=== PATIENT | male | born 1980 | race Hispanic/Latino ===

== ENCOUNTER 2019-07-11 08:34 | Day surgery (SDC) | payer BC ==
[2019-07-11 09:06] LABS: Absolute Lymphocytes (CBC) 2.6 K/uL (0.7-4.9); Basophils % 1.3 % (0-1.3); Hematocrit 42.4 % (39.6-49.0); Lymphocytes % 28.1 % (15.3-44.8); MPV 6.9 fL (7.6-11.3); RBC Red Blood Cell Count 4.78 M/uL (4.33-5.43)
[2019-07-11 09:23] LABS: Albumin 4.1 g/dL (3.4-5.0); Bilirubin Direct 0.1 mg/dL (0-0.2); Bilirubin Total 0.4 mg/dL (0.2-1.0); Potassium 3.4 mmol/L (3.5-5.1); Protein, Total 7.5 g/dL (6.4-8.2)
[2019-07-11] MEDS ORDERED: KETOROLAC 30 MG/ML INJ ONE (09:26)
[2019-07-11] MEDS ORDERED: NA CHLORIDE 0.9% 1,000 ML ONE (09:26)
--- NOTE | 2019-07-11 10:02 | RAD REPORT ---
EXAM DESCRIPTION: CT - Stone Protocol - 07/11/2019 9:39 am CLINICAL HISTORY: Flank pain. left flank pain COMPARISON: No comparisons TECHNIQUE: Axial images were obtained without oral or IV contrast. Lack of contrast limits solid org an and vascular assessment. The [id number] spans the entirety of the system partially obscuring uppermost abdomen and lung bases. Coronal reformatted images were obtained and reviewed. All CT scans are performed using dose optimization technique as appropriate and may include automated exposure control or mA/KV adjustment according to patient size. FINDINGS: The lower lung park are clear. Imaged portions of the liver and spleen show no suspicious findings on non-contrast imaging. The panc reas and adrenal glands are normal. No pathologic lymphadenopathy in the abdomen or pelvis. 5 mm calculus is present at the left UVJ resulting in moderate left hydronephrosis and hydroureter. S mall stone is present mid-pole left kidney measuring 3 mm. No bowel obstruction, free air, free fluid or abscess. Normal appendix noted. No significant bony abnormality. IMPRESSION: 5 mm calculus at the left UVJ resulting in moderate left hydronephrosis and hydroureter.
[2019-07-11] MEDS ORDERED: ONDANSETRON 4 MG/2 ML VIAL ONE ×3 (10:09→13:04)
--- NOTE | 2019-07-11 10:33 | ER ---
Nurse's Notes [facility] Name: Mihai Garcia Age: 38 yrs Sex: Male : 1980 Arrival Date: 07/11/2019 Time: 08:36 Bed 18 Private MD: Diagnosis: Kidney Stone: 5 mm Left UPJ, Intractable pain, nausea and vomiting Presentation: 07/11 08:48 Presenting complaint: Patient states: Sudden onset of L mid back pain (45 minutes ago) ss that radiates towards L lower quadrant described as pressure and sharp, stabbing pain. Also c/o nausea and unable to urinate. Transition of care: patient was not received from another setting of care. Onset of symptoms was July 11, 2019. Risk Assessment: Do you want to hurt yourself or someone else? Patient reports no desire to harm self or others. Initial Sepsis Screen: Does the patient meet any 2 criteria? No. Patient's initial sepsis screen is negative. Does the patient have a suspected source of infection? No. Patient's initial sepsis screen is negative. Care prior to arrival: None. 08:48 Acuity: EDMUND 2 ss 08:48 Method Of Arrival: Ambulatory ss Triage Assessment: 08:55 General: Appears in no apparent distress. uncomfortable, Behavior is cooperative, bp appropriate for age, anxious. Pain: Complains of pain in abdomen. EENT: No deficits noted. Neuro: No deficits noted. Cardiovascular: No deficits noted. Respiratory: No deficits noted. GI: Abdomen is non-distended, Reports nausea, vomiting. : No signs and/or symptoms were reported regarding the genitourinary system. Derm: No deficits noted. Musculoskeletal: No deficits noted. Historical: - Allergies: 08:46 No Known Allergies; ss - Home Meds: 08:46 None [Active]; ss - PMHx: 08:46 None; ss - PSHx: 08:46 None; ss - Immunization history:: Adult Immunizations up to date. - Social history:: Smoking status: Patient uses tobacco products, denies chronic smoking, but will smoke occasionally. - Ebola Screening: : Patient denies exposure to infectious person Patient denies travel to an Ebola-affected area in the 21 days before illness onset. Screenin:55 Abuse screen: Denies threats or abuse. Denies injuries from another. Nutritional bp screening: No deficits noted. Tuberculosis screening: No symptoms or risk factors identified. Fall Risk None identified. Assessment: 08:55 General: SEE TRIAGE NOTE. bp 10:24 Reassessment: No changes from previously documented assessment. Patient states that he aj1 is still having some pain, but it is much better than when he got here. General: Appears in no apparent distress. comfortable, Behavior is calm, cooperative, appropriate for age. Neuro: Level of Consciousness is awake, alert, obeys commands. Cardiovascular: Patient's skin is warm and dry. Respiratory: Airway is patent Respiratory effort is even, unlabored, Respiratory pattern is regular, symmetrical. GI: Abdomen is flat, non-distended, Bowel sounds present X 4 quads. Abd is soft and non tender X 4 quads. Reports nausea, vomiting. : No signs and/or symptoms were reported regarding the genitourinary system. EENT: No signs and/or symptoms were reported regarding the EENT system. Derm: No signs and/or symptoms reported regarding the dermatologic system. Skin is pink, warm \T\ dry. normal. Musculoskeletal: No signs and/or symptoms reported regarding the musculoskeletal system. Circulation, motion, and sensation intact. 10:30 Reassessment: Discharge pending completion of IV fluids, and ER MD talking to patient aj1 about results. 10:45 Reassessment: Patient states that his pain is coming back. Notified Dr. Ochoa, order aj1 received. 11:30 Reassessment: Patient appears in no apparent distress at this time. No changes from [facility] previously documented assessment. Patient and/or family updated on plan of care and expected duration. Pain level reassessed. Patient is alert, oriented x 3, equal unlabored respirations, skin warm/dry/pink. 11:55 Reassessment: Dr. Ochoa at bedside, states that now were are going to admit the aj1 patient. 12:30 Reassessment: Patient appears in no apparent distress at this time. No changes from aj1 previously documented assessment. Patient and/or family updated on plan of care and expected duration. Pain level reassessed. Patient is alert, oriented x 3, equal unlabored respirations, skin warm/dry/pink. Vital Signs: 08:46 BP 161 / 103; Pulse 97; Resp 23; Temp 96.9(TE); Pulse Ox 98% ; Weight 99.34 kg; Height ss 5 ft. 8 in. (172.72 cm); Pain 10/10; 10:24 BP 137 / 84; Pulse 82; Resp 18; Pulse Ox 99% on R/A; aj1 12:30 BP 147 / 86; Pulse 92; Resp 18; Pulse Ox 97% on R/A; aj1 08:46 Body Mass Index 33.30 (99.34 kg, 172.72 cm) ED Course: 08:36 Patient arrived in ED. rg4 08:50 Triage completed. ss 08:50 Fercho Rollins, NAJMA is Primary Nurse. bp 08:50 Dandre Ochoa MD is Attending Physician. kdr 08:55 Arm band placed on. bp 08:55 Patient has correct armband on for positive identification. Bed in low position. Call bp light in reach. Side rails up X2. 08:56 Inserted saline lock: 20 gauge in right antecubital area, using aseptic technique. bp Blood collected. 09:42 CT Stone Protocol In Process Unspecified. EDMS 10:30 Melinda Feliz MD is Referral Physician. kdr 11:58 Christoph Coppola DO is Hospitalizing Provider. kdr 12:42 No provider procedures requiring assistance completed. Patient admitted, IV remains in aj1 place. Administered Medications: 09:25 Drug: TORadol - Ketorolac 15 mg Route: IVP; Site: right antecubital; bp 10:30 Follow up: Response: No adverse reaction; Pain is decreased aj1 09:25 Drug: NS 0.9% 1000 ml Route: IV; Rate: 1 bolus; Site: right antecubital; bp 12:39 Follow up: IV Status: Completed infusion; IV Intake: 1000ml aj1 10:23 Drug: Zofran 4 mg Route: IVP; Site: left antecubital; aj1 11:30 Follow up: Response: No adverse reaction aj1 10:48 Drug: [place] 10 mg-325 mg 1 tabs Route: PO; aj1 11:20 Follow up: Response: No adverse reaction; RASS: Alert and Calm (0) aj1 10:49 Drug: Flomax 0.4 mg Route: PO; aj1 11:50 Follow up: Response: No adverse reaction aj1 12:04 Drug: Zofran 4 mg Route: IVP; Site: right antecubital; aj1 12:41 Follow up: Response: No adverse reaction aj1 12:04 Drug: morphine 4 mg Route: IVP; Site: right antecubital; aj1 12:41 Follow up: Response: No adverse reaction; Pain is decreased; RASS: Alert and Calm (0) aj1 Intake: 12:39 IV: 1000ml; Total: 1000ml. aj1 Outcome: 10:32 Discharge ordered by . kdr 11:59 Decision to Hospitalize by Provider. kdr 12:42 Admitted to OR accompanied by nurse, via stretcher, with chart. aj1 12:42 Condition: good 12:42 Discharge instructions given to patient, Instructed on the need for admit, Demonstrated understanding of instructions. 12:49 Patient left the ED. aj1 Signatures: Dispatcher [employer] Meka Avelar, RN RN aj1 Dandre Ochoa MD MD [facility] Tang RN RN ss Garcia, Rubi 4 Fercho Rollins RN RN bp
--- NOTE | 2019-07-11 10:33 | EDPHYS ---
Physician Documentation [facility] Name: Mihai Garcia Age: 38 yrs Sex: Male : 1980 Arrival Date: 07/11/2019 Time: 08:36 Bed 18 Private MD: ED Physician Dandre Ochoa HPI: 07/11 09:34 This 38 yrs old Male presents to ER via Ambulatory with complaints of kdr Abdominal Pain, Vomiting. 09:34 The patient presents to the emergency department with nausea. kdr 09:34 The patient presents with abdominal pain Left flank. Onset: The symptoms/episode kdr began/occurred suddenly, at 08:10. The symptoms radiate to the left flank. Associated signs and symptoms: Pertinent positives: nausea and vomiting, Pertinent negatives: constipation, diarrhea, dysuria, fever, headache, hematuria, palpitations, shortness of breath, testicular pain. The symptoms are described as achy, crampy, steady, waxing/waning. Modifying factors: The symptoms are alleviated by nothing, Better when standing and moving but not really comforatble. Severity of pain: At its worst the pain was mild in the emergency department the pain is unchanged. The patient has not experienced similar symptoms in the past. The patient has not recently seen a physician. Historical: - Allergies: 08:46 No Known Allergies; ss - Home Meds: 08:46 None [Active]; ss - PMHx: 08:46 None; ss - PSHx: 08:46 None; ss - Immunization history:: Adult Immunizations up to date. - Social history:: Smoking status: Patient uses tobacco products, denies chronic smoking, but will smoke occasionally. - Ebola Screening: : Patient denies exposure to infectious person Patient denies travel to an Ebola-affected area in the 21 days before illness onset. ROS: 09:34 Constitutional: Negative for fever, chills, and weight loss, Eyes: Negative for injury, kdr pain, redness, and discharge, Neck: Negative for injury, pain, and swelling, Cardiovascular: Negative for chest pain, palpitations, and edema, Respiratory: Negative for shortness of breath, cough, wheezing, and pleuritic chest pain, Back: Negative for injury and pain, : Negative for injury, bleeding, discharge, and swelling, MS/Extremity: Negative for injury and deformity, Skin: Negative for injury, rash, and discoloration, Psych: Negative for depression, anxiety, suicide ideation, homicidal ideation, and hallucinations, Allergy/Immunology: Negative for hives, rash, and allergies, Endocrine: Negative for neck swelling, polydipsia, polyuria, polyphagia, and marked weight changes, Hematologic/Lymphatic: Negative for swollen nodes, abnormal bleeding, and unusual bruising. 09:34 Abdomen/GI: Positive for nausea and vomiting, left flank pain. Exam: 09:34 Constitutional: This is a well developed, well nourished patient who is awake, alert, kdr and in no acute distress. Head/Face: Normocephalic, atraumatic. Eyes: Pupils equal round and reactive to light, extra-ocular motions intact. Lids and lashes normal. Conjunctiva and sclera are non-icteric and not injected. Cornea within normal limits. Periorbital areas with no swelling, redness, or edema. Neck: Trachea midline, no thyromegaly or masses palpated, and no cervical lymphadenopathy. Supple, full range of motion without nuchal rigidity, or vertebral point tenderness. No Meningismus. Chest/axilla: Normal chest wall appearance and motion. Nontender with no deformity. No lesions are appreciated. Cardiovascular: Regular rate and rhythm with a normal S1 and S2. No gallops, murmurs, or rubs. Normal PMI, no JVD. No pulse deficits. Respiratory: Lungs have equal breath sounds bilaterally, clear to auscultation and percussion. No rales, rhonchi or wheezes noted. No increased work of breathing, no retractions or nasal flaring. Back: No spinal tenderness. No costovertebral tenderness. Full range of motion. Skin: Warm, dry with normal turgor. Normal color with no rashes, no lesions, and no evidence of cellulitis. MS/ Extremity: Pulses equal, no cyanosis. Neurovascular intact. Full, normal range of motion. Neuro: Awake and alert, GCS 15, oriented to person, place, time, and situation. Cranial nerves II-XII grossly intact. Motor strength 5/5 in all extremities. Sensory grossly intact. Cerebellar exam normal. Normal gait. Psych: Awake, alert, with orientation to person, place and time. Behavior, mood, and affect are within normal limits. 09:34 Abdomen/GI: Inspection: abdomen appears normal, Bowel sounds: normal, Palpation: abdomen is soft and non-tender, mass, is not appreciated, rebound tenderness, is not appreciated. Vital Signs: 08:46 BP 161 / 103; Pulse 97; Resp 23; Temp 96.9(TE); Pulse Ox 98% ; Weight 99.34 kg; Height ss 5 ft. 8 in. (172.72 cm); Pain 10/10; 10:24 BP 137 / 84; Pulse 82; Resp 18; Pulse Ox 99% on R/A; aj1 12:30 BP 147 / 86; Pulse 92; Resp 18; Pulse Ox 97% on R/A; aj1 08:46 Body Mass Index 33.30 (99.34 kg, 172.72 cm) ss MDM: 09:34 Data reviewed: vital signs, nurses notes, lab test result(s), radiologic studies. kdr Counseling: I had a detailed discussion with the patient and/or guardian regarding: the historical points, exam findings, and any diagnostic results supporting the discharge/admit diagnosis, lab results, radiology results, the need for outpatient follow up. 10:32 Patient medically screened. kdr 07/11 08:54 Order name: Basic Metabolic Panel; Complete Time: 10:25 kdr 07/11 08:54 Order name: CBC with Diff; Complete Time: 10:25 kdr 07/11 08:54 Order name: Creatinine for Radiology; Complete Time: 10:25 kdr 07/11 08:54 Order name: Hepatic Function; Complete Time: 10:25 kdr 07/11 08:54 Order name: Lipase; Complete Time: 10:25 kdr 07/11 10:42 Order name: Urine Dipstick--Ancillary (enter results) eb 07/11 09:13 Order name: CT Stone Protocol; Complete Time: 10:25 kdr 07/11 10:54 Order name: Urine Dipstick-Ancillary EDKY 07/11 08:54 Order name: IV Saline Lock; Complete Time: 08:57 kdr 07/11 08:54 Order name: Labs collected and sent; Complete Time: 08:57 kdr Administered Medications: 09:25 Drug: TORadol - Ketorolac 15 mg Route: IVP; Site: right antecubital; bp 10:30 Follow up: Response: No adverse reaction; Pain is decreased [facility] 09:25 Drug: NS 0.9% 1000 ml Route: IV; Rate: 1 bolus; Site: right antecubital; bp 12:39 Follow up: IV Status: Completed infusion; IV Intake: 1000ml aj1 10:23 Drug: Zofran 4 mg Route: IVP; Site: left antecubital; aj1 11:30 Follow up: Response: No adverse reaction aj1 10:48 Drug: [place] 10 mg-325 mg 1 tabs Route: PO; aj1 11:20 Follow up: Response: No adverse reaction; RASS: Alert and Calm (0) aj1 10:49 Drug: Flomax 0.4 mg Route: PO; aj1 11:50 Follow up: Response: No adverse reaction aj1 12:04 Drug: Zofran 4 mg Route: IVP; Site: right antecubital; aj1 12:41 Follow up: Response: No adverse reaction aj1 12:04 Drug: morphine 4 mg Route: IVP; Site: right antecubital; aj1 12:41 Follow up: Response: No adverse reaction; Pain is decreased; RASS: Alert and Calm (0) aj1 Disposition: 07/11/19 11:59 Hospitalization ordered by Christoph Coppola for Observation. Preliminary diagnosis is Kidney Stone: 5 mm Left UPJ, Intractable pain, nausea and vomiting. - Bed requested for Telemetry/MedSurg (observation). - Status is Observation. aj1 - Condition is Fair. - Problem is new. - Symptoms have improved. UTI on Admission? No Signatures: Dispatcher [employer] EDMS Meka Rod RN RN aj1 Dandre Ochoa MD MD kdr Smirch, Shelby, RN RN Fercho Rollins RN RN bp Corrections: (The following items were deleted from the chart) 11:57 10:32 07/11/2019 10:32 Discharged to Home. Impression: Kidney stones: 5 m LEFT UPJ. kdr Condition is Stable. Forms are Medication Reconciliation Form, Thank You Letter, Antibiotic Education, Prescription Opioid Use. Follow up: Private Physician; When: 2 - 3 days; Reason: If symptoms return, Further diagnostic work-up, Recheck today's complaints, Continuance of care, Re-evaluation by your physician. Follow up: Melinda Feliz; When: 2 - 3 days; Reason: Further diagnostic work-up, Recheck today's complaints, Continuance of care, Re-evaluation by your physician. Problem is new. Symptoms have improved. kdr 12:49 11:59 Hospitalization Ordered by Christoph Coppola DO for Observation. Preliminary aj1 diagnosis is Kidney Stone: 5 mm Left UPJ, Intractable pain, nausea and vomiting. Bed requested for Telemetry/MedSurg (observation). Status is Observation. Condition is Fair. Problem is new. Symptoms have improved. UTI on Admission? No. kdr
[2019-07-11] MEDS ORDERED: TAMSULOSIN 0.4 MG SR CAP ONE (10:45)
[2019-07-11] MEDS ORDERED: HYDROCODONE/APAP 10/325 TAB ONE (10:49)
[2019-07-11 10:52] LABS: Urine Blood TRACE (NEG); Urine Glucose NEGATIVE (NEG); Urine Protein NEGATIVE (NEG); Urine pH 7.5 (5.0-7.0)
[2019-07-11] MEDS ORDERED: MORPHINE 4 MG/ML SYR ONE (12:00)
[2019-07-11] MEDS ORDERED: Ringers Lactate 1,000 ML IV ONE (12:50)
[2019-07-11] MEDS ORDERED: FENTANYL CITR 100 MCG/2 ML ONE (13:03)
[2019-07-11] MEDS ORDERED: PROPOFOL 200 MG/20 ML VIAL IV ONE ×2 (13:03→13:21)
[2019-07-11] MEDS ORDERED: MIDAZOLAM HCL 2 MG/2 ML INJ ONE (13:04)
[2019-07-11] MEDS ORDERED: ROCURONIUM 50 MG/5 ML VIAL IV ONE ×2 (13:04→13:30)
[2019-07-11] MEDS ORDERED: LIDOCAINE 2% MPF 5 ML VIAL ONE (13:04)
[2019-07-11] MEDS ORDERED: SUCCINYLCHOLINE 20 MG/ML (10 ML) IV ONE (13:08)
--- NOTE | 2019-07-11 13:23 | P.HP ---
Certification for Inpatient Patient admitted to: Observation With expected LOS: <2 Midnights Patient will require the following post-hospital care: None Practitioner: I am a practitioner with admitting privileges, knowledge of patient current condition, hospital course, and medical plan of care. Services: Services provided to patient in accordance with Admission requirements found in Title 42 Section 412.3 of the Code of Federal Regulations Patient History Date of Service: 07/11/19 Primary Care Provider: MARLEY Estrada Reason for admission: Left flank pain History of Present Illness: 38-year-old male presented with left flank pain. This started about 1 -2 days ago. Pain would come and go. He rated the pain about 10/10 today. He came to the ER for further evaluation. She denied any fever, chills, chest pain or shortness of breath. In the ER patient was evaluated. CBC, [employer] and UA reviewed. CT showed a 5 mm left UVJ stone with moderate hydronephrosis and hydroureter. Patient was admitted for further evaluation. Urology was consulted in the ER. Urology plans for intervention and likely discharge. Allergies No Known Allergies Allergy (Unverified 07/11/19 12:30) Home medications list reviewed: No - Past Medical/Surgical History Diabetic: No -: Elevated blood pressure without hypertension Past Surgical History: Patient denies surgical history Psychosocial/ Personal History: Patient is single. - Family History Family History: Reviewed- Non-Contributory - Social History Smoking Status: Light Tobacco smoker (1-9 cigarettes/day) Counseled patient to stop smoking for: less than 10 minutes Smoking therapy provided: Yes Patient receptive to therapy: Yes Alcohol use: Yes CD- Drugs: No Caffeine use: Yes Place of Residence: Home Review of Systems General: Unremarkable Eyes: Unremarkable ENT: Unremarkable Respiratory: Unremarkable Cardiovascular: Unremarkable Gastrointestinal: As per HPI Genitourinary: As per HPI Musculoskeletal: Unremarkable Integumentary: Unremarkable Neurological: Unremarkable Physical Examination - Vital Signs Temperature: 96.9 F Blood Pressure: 147/86 Pulse: 92 Respirations: 18 - Physical Exam General: Alert, In no apparent distress, Oriented x3, Cooperative HEENT: Atraumatic Neck: Supple Respiratory: Clear to auscultation bilaterally, Normal air movement Cardiovascular: Normal pulses, Regular rate/rhythm Gastrointestinal: Normal bowel sounds, Soft and benign, Non-distended Musculoskeletal: No erythema, No tenderness, No warmth Integumentary: No tenderness/swelling, No erythema, No warmth, No cyanosis Neurological: Normal speech, Normal strength at 5/5 x4 extr, Normal tone - Studies Laboratory Data (last 24 hrs) 07/11/19 08:55: Creatinine 1.07 07/11/19 08:55: WBC 9.1, Hgb 15.2, Hct 42.4, Plt Count 330 07/11/19 08:55: Sodium 142, Potassium 3.4 L, BUN 12, Creatinine 1.05, Glucose 98 , Total Bilirubin 0.4, AST 22, ALT 30, Alkaline Phosphatase 121 H, Lipase 208 Assessment and Plan - Plan Impression: Left flank pain secondary to a 5 mm left UVJ stone with hydronephrosis and hydroureter Plan: Patient will be admitted. Patient currently NPO. Urology plans for intervention and likely discharge. Await findings and recommendations. Discharge Plan: Home Plan to discharge in: 24 Hours - Advance Directives Does patient have a Living Will: No Does patient have a Durable POA for Healthcare: No - Code Status/Comfort Care Code Status Assessed: Yes (Patient is full code) Time Spent Managing Pts Care (In Minutes): 30
[2019-07-11] MEDS ORDERED: Mastisol Adhesive Liq ONE (13:48)
[2019-07-11] MEDS ORDERED: GLYCOPYRROLATE 0.2 MG/ML SYR ONE (13:53)
--- NOTE | 2019-07-11 13:53 | CON ---
History Of Present Illness: This is a 38-year-old gentleman who presented with left flank pain, unab le to control by pain medication. He had a CT scan revealing a 5 mm stone at the left UVJ resulting in moderate hydronephrosis and hydroureter. He also has a 3 mm stone in the left mid pole of the kid hu, thought it was best for him to have ureteroscopy, stone extraction, and stent placement. All th e general information and alternatives were given to the patient. He wishes to proceed. He describe s the pain as a sudden left mid back pain, started today, radiated to the left lower quadrant. The p ressure was described as sharp, stabbing pain and colicky pain. Also has some nausea and some diffic ulty urinating. Allergies: NO KNOWN DRUG ALLERGIES. Home Medications: None. Past Medical History: None. Past Surgical History: None. Immunizations: Up to date. Social History: He used tobacco products but denies chronic smoking, will smoke occasionally. No dr ug use. Review of Systems: 10-point review of systemsotherwise negative. Physical Examination: Vital Signs: BP 137/84, pulse 82, respirations 18, pulse ox 99% on room air. HEENT: Atraumatic, normocephalic. Lungs: Clear. Heart: S1, S2. Abdomen: Soft, nontender. Extremities: Normal range of motion. Laboratory Data: White count 9.1, H and H are 15 and 42, platelets 330. Chemistries show sodium 142 , potassium 3.4 slightly low, chloride 110, glucose 98, BUN 12, creatinine 1.0, GFR 80. LFTs normal. UA shows negative UA with a pH of 7.5. Assessment: A 38-year-old gentleman, left ureterovesical junction stone causing hydroureter, hydrone phrosis and pain. Plan: Plan is for cystoscopy, ureteroscopy, stone extraction, stent placement. All the general info rmation, alternatives, and risks were reviewed with the patient, who wished to proceed. TYSON/BRANDON Voice ID: [id number] Report ID: [id number]
[2019-07-11] MEDS ORDERED: NEOSTIGMINE 1 MG/ML -5 ML ONE (13:54)
[2019-07-11] MEDS ORDERED: ONDANSETRON 4 MG/2 ML VIAL IV PRN (14:10)
[2019-07-11 14:23] VITALS: TEMP 97.8
--- NOTE | 2019-07-11 14:26 | RAD REPORT ---
EXAM DESCRIPTION: RAD - Urethrocystogrphy Retrograde - 07/11/2019 2:14 pm CLINICAL HISTORY: KIDNEY STONE COMPARISON: No comparisons FINDINGS: Fluoroscopy time 39 seconds
--- NOTE | 2019-07-11 14:53 | P.DS ---
Discharge Date: 07/11/19 Primary Care Provider: MARLEY Estrada Disposition: ROUTINE DISCHARGE Discharge Condition: GOOD Reason for Admission: Left flank pain Consultations: Urology-Dr. Feliz Procedures: CT scan: FINDINGS: The lower lung park are clear. Imaged portions of the liver and spleen show no suspicious findings on non- contrast imaging. The pancreas and adrenal glands are normal. No pathologic lymphadenopathy in the abdomen or pelvis. 5 mm calculus is present at the left UVJ resulting in moderate left hydronephrosis and hydroureter. Small stone is present mid-pole left kidney measuring 3 mm. No bowel obstruction, free air, free fluid or abscess. Normal appendix noted. No significant bony abnormality. IMPRESSION: 5 mm calculus at the left UVJ resulting in moderate left hydronephrosis and hydroureter. Surgery: Ureteroscopy with stent placement Medical problem list: Left flank pain secondary to a 5 mm left UVJ stone with hydronephrosis and hydroureter status post Ureteroscopy with stent placement Brief History of Present Illness: 38-year-old male presented with left flank pain. This started about 1 -2 days ago. Pain would come and go. He rated the pain about 10/10 today. He came to the ER for further evaluation. She denied any fever, chills, chest pain or shortness of breath. In the ER patient was evaluated. CBC, LOAD DISPATCHER and UA reviewed. CT showed a 5 mm left UVJ stone with moderate hydronephrosis and hydroureter. Patient was admitted for further evaluation. Urology was consulted in the ER. Urology plans for intervention and likely discharge. Hospital Course: Patient presented with left flank pain. Patient found to have 5 mm calculus at the left UVJ resulting in left hydronephrosis and hydroureter. Patient was admitted for further evaluation. Urology recommended intervention. Urology performed Ureteroscopy with stent placement. Patient stable after procedure. Patient will be discharged home. He will follow up with urology in 1 week. Vital Signs/Physical Exam: Temp Pulse Resp BP Pulse Ox 97.8 F 87 16 126/85 07/11/19 14:30 07/11/19 14:30 07/11/19 14:30 07/11/19 14:30 General: Alert, Cooperative HEENT: Atraumatic Neck: Supple Respiratory: Clear to auscultation bilaterally, Normal air movement Cardiovascular: Normal pulses, Regular rate/rhythm Laboratory Data at Discharge: WBC 9.1 K/uL (4.3-10.9) 07/11/19 08:55 Hgb 15.2 g/dL (13.6-17.9) 07/11/19 08:55 Hct 42.4 % (39.6-49.0) 07/11/19 08:55 Plt Count 330 K/uL (152-406) 07/11/19 08:55 Sodium 142 mmol/L (136-145) 07/11/19 08:55 Potassium 3.4 mmol/L (3.5-5.1) L 07/11/19 08:55 BUN 12 mg/dL (7-18) 07/11/19 08:55 Creatinine 1.05 mg/dL (0.55-1.3) 07/11/19 08:55 Glucose 98 mg/dL (74-106) 07/11/19 08:55 Total Bilirubin 0.4 mg/dL (0.2-1.0) 07/11/19 08:55 AST 22 U/L (15-37) 07/11/19 08:55 ALT 30 U/L (12-78) 07/11/19 08:55 Alkaline Phosphatase 121 U/L (45-117) H 07/11/19 08:55 Lipase 208 U/L (73-393) 07/11/19 08:55 Patient Discharge Instructions: Patient will be discharged home. Continue with urology follow up and recommendations. Diet: AHA Activity: Ad manfred Time spent managing pt's care (in minutes): 25
[2019-07-11] MEDS ORDERED: TRAMADOL HCL 50 MG TAB ONE (14:56)
[2019-07-11 15:46] VITALS: BP 133/89; O2SAT 98
== END 2019-07-11 15:36 | disposition home or self-care (01) ==
LOC: ER 08:34 → OR 13:18 → ERHOLD 13:18 → UNDOADMOB 13:18 → OR 15:36
PROVIDERS: ATTEND Family Medicine
PROC: 0T778DZ Dilation of Left Ureter with Intraluminal Device, Via Natural or Artificial Opening Endoscopic (ICD-10-PCS; 2019-07-11)
PROC: 0TC78ZZ Extirpation of Matter from Left Ureter, Via Natural or Artificial Opening Endoscopic (ICD-10-PCS; 2019-07-11)
PROC: 0TF78ZZ Fragmentation in Left Ureter, Via Natural or Artificial Opening Endoscopic (ICD-10-PCS; principal; 2019-07-11 13:00)
DX: N20.1 Calculus of ureter (principal); N13.30 Unspecified hydronephrosis; N13.4 Hydroureter; I10 Essential (primary) hypertension; F17.210 Nicotine dependence, cigarettes, uncomplicated
CPT/HCPCS: 96361; 85025; 80048; 36415; 80076; 88300; 81003; 83690; 82360; 76377; 74176; 74450; 51610; 96375; 96374; 99285; 52356; J2704 ×2; J0330; J2250; J3010; J2710; J7120; J7030; J2405 ×3

== ENCOUNTER 2024-01-16 00:01 | Emergency (ER) | payer OTHER ==
[2024-01-16] MEDS ORDERED: DIPHENHYDRAMINE 50 MG/ML VIAL ONE (02:34)
[2024-01-16] MEDS ORDERED: lisinopriL 10 MG TAB ONE (02:34)
[2024-01-16] MEDS ORDERED: METOCLOPRAMIDE 10 MG/2mL INJ ONE (02:34)
[2024-01-16] MEDS ORDERED: KETOROLAC 30 MG/ML INJ ONE (02:34)
[2024-01-16] MEDS ORDERED: NA CHLORIDE 0.9% 1,000 ML ONE (02:35)
--- NOTE | 2024-01-16 03:18 | EDPHYS ---
Physician Documentation [facility] Name: Mihai Garcia Age: 43 yrs Sex: Male : 1980 Arrival Date: 01/16/2024 Time: 00:01 Bed 15 Private MD: ED Physician Armin Adams HPI: 01/15 00:39 This 43 yrs old Male presents to ER via Ambulatory with complaints of Headache.sb4 00:39 The patient complains of pain to the right occipital area and right base of the skull. sb4 The patient describes the headache as squeezing. Onset: The symptoms/episode began/occurred today. Associated signs and symptoms: The patient has no apparent associated signs or symptoms. Headache History: The patient has had previous headaches and this one is more severe than previous episodes. Historical: - Allergies: 00:36 No Known Allergies; ss - Home Meds: 00:36 lisinopril 10 mg Oral tablet 1 tab once [Active]; ss - PMHx: 00:36 Hypertensive disorder; migraines; ss - PSHx: 00:36 None; ss - Immunization history:: Client reports having NOT received the Covid vaccine. - Infectious Disease History:: Denies. - Social history:: Smoking status: Patient denies any tobacco usage or history of. ROS: 00:41 Constitutional: Negative for fever, chills, and weight loss, sb4 00:41 Neuro: Positive for headache, 00:41 All other systems are negative, Exam: 00:41 Head/Face: Normocephalic, atraumatic. Eyes: Extra-ocular motions intact. Periorbital sb4 areas with no swelling, redness, or edema. ENT: Mucous membranes moist. 00:41 Cardiovascular: Regular rate and rhythm with a normal S1 and S2. Respiratory: Lungs have equal breath sounds bilaterally, clear to auscultation and percussion. No rales, rhonchi or wheezes noted. No increased work of breathing, no retractions or nasal flaring. Abdomen/GI: Soft, non-tender, no distension. Skin: Warm, dry with normal turgor. Normal color with no rashes, no lesions, and no evidence of cellulitis. MS/ Extremity: Pulses equal, no cyanosis. Neurovascular intact. Full, normal range of motion. Neuro: Awake and alert, GCS 15, oriented to person, place, time, and situation. Motor strength 5/5 in all extremities. Sensory grossly intact. 00:41 Constitutional: The patient appears alert, awake, uncomfortable, 00:41 Eyes: Pupils: equal, round, and reactive to light and accomodation, Vital Signs: 00:35 BP 155 / 110; Pulse 76; Resp 15; Pulse Ox 98% on R/A; ss 02:31 BP 154 / 115; Pulse 76; Resp 18; Pulse Ox 98% ; pc2 03:55 BP 138 / 92; Pulse 82; Resp 18; Pulse Ox 97% ; Pain 2/10; pc2 03:55 Pain Scale: Adult pc2 [place] Coma Score: 03:17 Eye Response: spontaneous(4). Motor Response: obeys commands(6). Verbal Response: sb4 oriented(5). Total: 15. MDM: 00:11 Patient medically screened. sp4 03:17 Data reviewed: vital signs, nurses notes, radiologic studies, and as a result, I will sb4 discharge patient. Counseling: I had a detailed discussion with the patient and/or guardian regarding the historical points, exam findings, and any diagnostic results supporting the discharge/admit diagnosis, radiology results, to return to the emergency department if symptoms worsen or persist or if there are any questions or concerns that arise at home. 18 00:38 Order name: Head C Spine MPR Wo Con CT sb4 Administered Medications: 02:40 Drug: Lisinopril PO 10 mg PO once Route: PO; pc2 03:20 Follow up: Response: No adverse reaction; Marked relief of symptoms pc2 02:48 Drug: NS 0.9% IV 1000 ml IV at 1 bolus Per protocol; 1000 mL bolus Route: IV; Rate: 1 pc2 bolus; Site: left antecubital; 03:58 Follow up: IV Status: Completed infusion; IV Intake: 1000ml pc2 02:50 Drug: Ketorolac IVP 15 mg IVP once Route: IVP; Site: left antecubital; pc2 03:20 Follow up: Response: No adverse reaction; Marked relief of symptoms; Pain is decreased pc2 02:51 Drug: diphenhydrAMINE IVP 25 mg IVP once Route: IVP; Site: left antecubital; pc2 03:20 Follow up: Response: No adverse reaction; Marked relief of symptoms pc2 02:55 Drug: metoCLOPramide IVP 10 mg IVP once; over 1 to 2 minutes Route: IVP; Site: left pc2 antecubital; 03:20 Follow up: Response: No adverse reaction; Marked relief of symptoms pc2 Disposition: 20:20 Co-signature as Attending Physician, Armin Adams MD I agree with the assessment sp4 and plan of care. I reviewed the patient's care provided by the Advanced Practice Provider and agree with the diagnosis and treatment plan. Disposition Summary: 01/16/24 03:17 Discharge Ordered Notes: Location: Home sb4 Problem: new sb4 Symptoms: have improved sb4 Condition: Stable sb4 Diagnosis - Tension-type headache, unspecified, not intractable sb4 Followup: sb4 - With: Mike Muniz MD - When: As needed - Reason: Further diagnostic work-up, Recheck today's complaints, Re-evaluation by your physician Discharge Instructions: - Discharge Summary Sheet sb4 - Tension Headache, Adult, [place] sb4 Forms: - Patient Portal Instructions sb4 - Leadership Thank You Letter sb4 Signatures: Dispatcher [employer] Africa Reyna, RN RN Miladys Rowell, PA-C PA-C sb4 Armin Adams MD MD sp4 Crissy myers RN RN pc2 Corrections: (The following items were deleted from the chart) 03:18 03:17 Headache sb4 sb4
--- NOTE | 2024-01-16 03:18 | ER ---
Nurse's Notes [facility] Name: Mihai Garcia Age: 43 yrs Sex: Male : 1980 Arrival Date: 01/16/2024 Time: 00:01 Bed 15 Private MD: Diagnosis: Tension-type headache, unspecified, not intractable Presentation: 01/15 00:35 Chief complaint: Patient states: headache that began 1.5 hours ago. Pt reports hx of ss migraines, but states this one feels different. Pt states, "it's usually not this bad and goes away after a short period of time." Pt also reports he is supposed to take medication for his HTN, but has not been taking it lately. Coronavirus screen: Client denies travel out of the [place] in the last 14 days. Ebola Screen: Patient denies exposure to infectious person. Patient denies travel to an Ebola-affected area in the 21 days before illness onset. Initial Sepsis Screen: Does the patient meet any 2 criteria? No. Patient's initial sepsis screen is negative. Does the patient have a suspected source of infection? No. Patient's initial sepsis screen is negative. Risk Assessment: Do you want to hurt yourself or someone else? Patient reports no desire to harm self or others. Onset of symptoms was January 16, 2024. 00:35 Method Of Arrival: Ambulatory ss 00:35 Acuity: EDMUND 3 ss Triage Assessment: 00:36 General: Appears in no apparent distress. Behavior is calm, cooperative. Pain: ss Complains of pain in back of head Pain currently is 10 out of 10 on a pain scale. Quality of pain is described as pressure, Is continuous. Neuro: Level of Consciousness is awake, alert, obeys commands, Oriented to person, place, time, situation. Respiratory: Respiratory effort is even, unlabored. 03:06 Pain: Also complains of inability to work. pc2 03:07 Pain: Pain began gradually. pc2 03:09 Headache History: The patient has had previous headaches and this one is similar to pc2 previous episodes. Historical: - Allergies: 00:36 No Known Allergies; ss - Home Meds: 00:36 lisinopril 10 mg Oral tablet 1 tab once [Active]; ss - PMHx: 00:36 Hypertensive disorder; migraines; ss - PSHx: 00:36 None; ss - Immunization history:: Client reports having NOT received the Covid vaccine. - Infectious Disease History:: Denies. - Social history:: Smoking status: Patient denies any tobacco usage or history of. Screenin:06 [facility] ED Fall Risk Assessment (Adult) History of falling in the last 3 months, pc2 including since admission No falls in past 3 months (0 pts). Abuse screen: Denies threats or abuse. Denies injuries from another. Nutritional screening: No deficits noted. Tuberculosis screening: No symptoms or risk factors identified. Assessment: 02:40 General: Appears in no apparent distress. distressed, comfortable, well groomed, pc2 Behavior is calm, cooperative, appropriate for age. Pain: Complains of pain in head Pain currently is 10 out of 10 on a pain scale. 02:40 Neuro: Cohen Agitation-Sedation Scale (RASS): 0 - Alert and Calm Level of pc2 Consciousness is awake, alert, Oriented to person, place, time, situation. Neuro: Cohen Agitation-Sedation Scale (RASS): Reports headache occipital area. Cardiovascular: Denies lightheadedness. Respiratory: Airway is patent Respiratory effort is even, unlabored, Respiratory pattern is regular, symmetrical. GI: GI: No signs and/or symptoms were reported involving the gastrointestinal system. : : No signs and/or symptoms were reported regarding the genitourinary system. EENT: No signs and/or symptoms were reported regarding the EENT system. Musculoskeletal: No signs and/or symptoms reported regarding the musculoskeletal system. 03:20 Reassessment: Patient and/or family updated on plan of care and expected duration. Pain pc2 level reassessed. Patient is alert, oriented x 3, equal unlabored respirations, skin warm/dry/pink. Patient states symptoms have improved. Pain: Pain currently is 3 out of 10 on a pain scale. Vital Signs: 00:35 BP 155 / 110; Pulse 76; Resp 15; Pulse Ox 98% on R/A; ss 02:31 BP 154 / 115; Pulse 76; Resp 18; Pulse Ox 98% ; pc2 03:55 BP 138 / 92; Pulse 82; Resp 18; Pulse Ox 97% ; Pain 2/10; pc2 03:55 Pain Scale: Adult pc2 [place] Coma Score: 03:17 Eye Response: spontaneous(4). Motor Response: obeys commands(6). Verbal Response: sb4 oriented(5). Total: 15. ED Course: 00:04 Patient arrived in ED. mr 00:04 Miladys Rivero PA-C [facility]. sb4 00:04 Armin Adams MD is Attending Physician. sb4 00:36 Triage completed. ss 00:36 Arm band placed on right wrist. ss 01:20 Head C Spine MPR Wo Con CT In Process Unspecified. EDMS 02:28 Crissy myers, RN is Primary Nurse. pc2 02:45 Inserted saline lock: 20 gauge in left antecubital area, using aseptic technique. pc2 03:07 Patient has correct armband on for positive identification. Bed in low position. Call pc2 light in reach. Side rails up X 1. Provided Education on: POC and timeframe. 03:17 Mike Muniz MD is Referral Physician. sb4 03:58 No provider procedures requiring assistance completed. pc2 03:58 intact, bleeding controlled, No redness/swelling at site. Pressure dressing applied. pc2 Administered Medications: 02:40 Drug: Lisinopril PO 10 mg PO once Route: PO; pc2 03:20 Follow up: Response: No adverse reaction; Marked relief of symptoms pc2 02:48 Drug: NS 0.9% IV 1000 ml IV at 1 bolus Per protocol; 1000 mL bolus Route: IV; Rate: 1 pc2 bolus; Site: left antecubital; 03:58 Follow up: IV Status: Completed infusion; IV Intake: 1000ml pc2 02:50 Drug: Ketorolac IVP 15 mg IVP once Route: IVP; Site: left antecubital; pc2 03:20 Follow up: Response: No adverse reaction; Marked relief of symptoms; Pain is decreased pc2 02:51 Drug: diphenhydrAMINE IVP 25 mg IVP once Route: IVP; Site: left antecubital; pc2 03:20 Follow up: Response: No adverse reaction; Marked relief of symptoms pc2 02:55 Drug: metoCLOPramide IVP 10 mg IVP once; over 1 to 2 minutes Route: IVP; Site: left pc2 antecubital; 03:20 Follow up: Response: No adverse reaction; Marked relief of symptoms pc2 Medication: 03:07 VIS not applicable for this client. pc2 Intake: 03:58 IV: 1000ml; Total: 1000ml. pc2 Outcome: 03:17 Discharge ordered by MD. gregg 03:58 Discharged to home ambulatory, with family, pc2 03:58 Condition: stable 03:58 Discharge instructions given to patient, Instructed on discharge instructions, follow up and referral plans. Demonstrated understanding of instructions, follow-up care, 04:02 Patient left the ED. pc2 Signatures: Dispatcher [employer] EDMS WinklerKristal, Reg Reg mr Africa Antonio, NAJMA RN ss Miladys Rivero, PA-C PA-C Crissy carrillo, RN RN pc2 Corrections: (The following items were deleted from the chart) 03:03 03:03 Inserted saline lock: 20 gauge in left antecubital area, using aseptic technique. pc2 pc2
[2024-01-16 04:34] VITALS: BP 138/92; O2SAT 97
--- NOTE | 2024-01-16 12:48 | RAD REPORT ---
EXAM DESCRIPTION: CT - Head C Spine Mpr Wo Con - 01/16/2024 7:02 am CLINICAL HISTORY: Neck pain;Headache COMPARISON: None Available. TECHNIQUE: Multiple helical axial tomographic images were obtained of the head and cervical spine wi thout intravenous contrast. This exam was performed according to our departmental dose-optimization p [facility], which includes automated exposure control, adjustment of the mA and/or kV according to patien t size and/or use of iterative reconstruction technique. FINDINGS: There is no acute intracranial hemorrhage. No mass. No midline shift. No ventriculomegaly. Carmichael-white matter differentiation is maintained. Small right maxillary sinus mucous retention cyst noted. Mastoid air cells and middle ear spaces are clear. Orbits and orbital contents are unremarkable. No acute calvarial fracture. No evidence of an acute fracture of the cervical spine. Vertebral body heights and disc spaces appear maintained. No subluxation. Surrounding soft tissues are unremarkable. IMPRESSION: 1. No acute intracranial process. 2. No evidence of an acute fracture of the cervical spine. Electronically signed by: Tigre Queen MD 01/16/2024 03:01 AM CDT Due to temporary technical issues with the PACS/Fluency reporting system, reports are being signed by the in house radiologists without review as a courtesy to insure prompt reporting. The interpreting radiologist is fully responsible for the content of the report.
== END 2024-01-16 04:02 | disposition home or self-care (01) ==
LOC: ER 00:01
DX: G44.209 Tension-type headache, unspecified, not intractable (principal)
CPT/HCPCS: 70450; 72125; J2765; J1200; J7030